=== PATIENT | male | born 1980 | race Caucasian/White ===

== ENCOUNTER 2020-01-01 04:31 | Emergency (ER) | payer OTHER ==
[2020-01-01] MEDS ORDERED: Tetracaine HCl/PF 0.5% 4 ML Bottle ONE (04:46)
[2020-01-01 04:54] LABS: CHLORIDE,CL 103 mmol/L (98-107); SODIUM,NA 140 mmol/L (136-145)
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
== END 2020-01-01 08:00 | disposition home or self-care (01) ==
LOC: LL.ED 04:31
DX: S05.01XA Injury of conjunctiva and corneal abrasion without foreign body, right eye, initial encounter (principal); S40.021A Contusion of right upper arm, initial encounter; S20.311A Abrasion of right front wall of thorax, initial encounter; R79.89 Other specified abnormal findings of blood chemistry; S00.211A Abrasion of right eyelid and periocular area, initial encounter; F17.200 Nicotine dependence, unspecified, uncomplicated; V57.6XXA Passenger in pick-up truck or van injured in collision with fixed or stationary object in traffic accident, initial encounter
CPT/HCPCS: 36415; 71046; 72040; 74018; 80053; 80307; 83605; 85025; 99283; 99284-25